=== PATIENT | female | born 1990 ===

== ENCOUNTER 2017-01-02 01:16 | Emergency (ER) | payer BC ==
[2017-01-02 01:33] VITALS: BP 137/80; PULSE 85; RESP 17; TEMP 98.7; O2SAT 98
[2017-01-02] MEDS ORDERED: Lidocaine 1% Inj (20ml) IJ ONE (01:58)
--- NOTE | 2017-01-02 02:04 | ED PDOC ---
HPI: Skin/Bite Injury Time Seen by Provider: 01/02/17 01:35 Chief Complaint (Nursing): Abnormal Skin Integrity Chief Complaint (Provider): right axilla pain History Per: Patient History/Exam Limitations: no limitations Onset/Duration Of Symptoms: Days (4) Current Symptoms Are (Timing): Still Present Quality Of Symptoms: Painful Additional History Per: Patient Additional Complaint(s): 26 y/o female presents with pain to right axilla x 4 days. Patient with history of MRSA, abscesses; states she has had them opened in her axilla multiple times. Denies fever, vomiting, chills, drainage from site. Past Medical History Reviewed: Historical Data, Nursing Documentation, Vital Signs Vital Signs: Last Vital Signs Temp 98.7 F 01/02/17 01:24 Pulse 85 01/02/17 01:24 Resp 17 01/02/17 01:24 BP 137/80 01/02/17 01:24 Pulse Ox 98 01/02/17 02:05 - Medical History PMH: No Chronic Diseases - Surgical History Surgical History: No Surg Hx - Family History Family History: States: No Known Family Hx - Home Medications Home Medications: Ambulatory Orders Medication Instructions Recorded Ibuprofen [Motrin Tab] 800 mg PO Q8 PRN #20 tab 01/02/17 Sulfamethoxazole/Trimethoprim 1 tab PO BID #14 tab 01/02/17 [Bactrim DS 800 mg-160 mg] - Allergies Allergies/Adverse Reactions: Allergies Allergy/AdvReac Type Severity Reaction Status Date / Time No Known Allergies Allergy Verified 01/02/17 01:33 Review of Systems ROS Statement: Except As Marked, All Systems Reviewed And Found Negative Skin: Positive for: Lesions (right axilla) Physical Exam - Reviewed Nursing Documentation Reviewed: Yes Vital Signs Reviewed: Yes - Physical Exam Appears: Positive for: Well, Non-toxic, No Acute Distress Head Exam: Positive for: ATRAUMATIC, NORMAL INSPECTION, NORMOCEPHALIC Skin: Positive for: Normal Color Eye Exam: Positive for: Normal appearance ENT: Positive for: Normal ENT Inspection Cardiovascular/Chest: Positive for: Regular Rate, Rhythm Respiratory: Positive for: Normal Breath Sounds Gastrointestinal/Abdominal: Positive for: Normal Exam Extremity: Positive for: Normal ROM, Other (erythema with cental area of fluctuance) Neurologic/Psych: Positive for: Alert, Oriented - ECG O2 Sat by Pulse Oximetry: 98 - Progress ED Course And Treament: Verbal consent given by patient for nitrous oxide use for I&D procedure Area cleaned with alcohol prep pad, anesthesized with 1% lidocaine. Incision made using size 11 blade with + prurlent and blood drainage. Area probed with forceps. Area packed, bandaged. Patient educated on findings, discharged with rx Bactrim DS, ibuprofen. Advised wound check/packing removal 48 hours. Return to ED for fever, increased pain/redness/swelling at site, or other concerning symptoms. Disposition - Clinical Impression Clinical Impression: Abscess, Cellulitis - Patient ED Disposition Is Patient to be Admitted: No Counseled Patient/Family Regarding: Diagnosis, Need For Followup, Rx Given - Disposition Disposition: Routine/Home Disposition Time: 02:49 Condition: STABLE Additional Instructions: Follow up in 48 hours for wound check. Take medication as directed. Return to ED for fever, increased redness at site, or other concerning symptoms. Prescriptions: Ibuprofen [Motrin Tab] 800 mg PO Q8 PRN #20 tab PRN Reason: Pain, Moderate (4-7) Sulfamethoxazole/Trimethoprim [Bactrim DS 800 mg-160 mg] 1 tab PO BID #14 tab Instructions: Abscess Incision and Drainage (ED), Cellulitis (ED)
[2017-01-02] MEDS ORDERED: Lidocaine 1% Inj (20ml) ONE (02:07)
[2017-01-02] MEDS ORDERED: Tmp-Smz 800 mg-160 mg DS Tab PO STA (02:49)
[2017-01-02] MEDS ORDERED: Tmp-Smz 800 mg-160 mg DS Tab ONE (02:59)
== END 2017-01-02 03:16 | disposition home or self-care (01) ==
LOC: H.ER 01:16
DX: L02.411 Cutaneous abscess of right axilla (principal)

== ENCOUNTER 2017-01-03 23:55 | Emergency (ER) | payer BC ==
[2017-01-04 00:11] VITALS: BP 149/81; PULSE 73; RESP 16; TEMP 98.4; O2SAT 100
--- NOTE | 2017-01-04 00:16 | ED PDOC ---
HPI: Wound Care - HPI Time Seen by Provider: 01/04/17 00:16 Chief Complaint (Nursing): Wound Check Chief Complaint (Provider): wound check History Per: Patient Additional Complaint(s): 26 year old presents to emergency Department for wound check of abscess. Patient was seen 2 days ago and had abscess to right axillary region drained. She was started on Bactrim. Patient states the area does feel better and redness and swelling have improved. She denies fever or chills. Past Medical History Reviewed: Historical Data, Nursing Documentation, Vital Signs Vital Signs: Last Vital Signs Temp 98.4 F 01/04/17 00:09 Pulse 73 01/04/17 00:09 Resp 16 01/04/17 00:09 BP 149/81 01/04/17 00:09 Pulse Ox 100 01/04/17 00:09 - Medical History PMH: No Chronic Diseases - Surgical History Surgical History: No Surg Hx - Family History Family History: States: No Known Family Hx - Living Arrangements Living Arrangements: With Family - Social History Current smoker - smoking cessation education provided: No Alcohol: None Drugs: Denies - Home Medications Home Medications: Ambulatory Orders Medication Instructions Recorded Ibuprofen [Motrin Tab] 800 mg PO Q8 PRN #20 tab 01/02/17 Sulfamethoxazole/Trimethoprim 1 tab PO BID #14 tab 01/02/17 [Bactrim DS 800 mg-160 mg] - Allergies Allergies/Adverse Reactions: Allergies Allergy/AdvReac Type Severity Reaction Status Date / Time No Known Allergies Allergy Verified 01/04/17 00:09 Review of Systems ROS Statement: Except As Marked, All Systems Reviewed And Found Negative Constitutional: Negative for: Fever Skin: Positive for: Other (wound check of abscess) Physical Exam - Reviewed Nursing Documentation Reviewed: Yes Vital Signs Reviewed: Yes - Physical Exam Appears: Positive for: Well, Non-toxic, No Acute Distress Skin: Negative for: Rash Eye Exam: Positive for: Normal appearance Extremity: Positive for: Other (Packed abscess noted to the right axillary region with minimal localized swelling and erythema, no active drainage) Neurologic/Psych: Positive for: Alert, Oriented - ECG O2 Sat by Pulse Oximetry: 100 Pulse Ox Interpretation: Normal Medical Decision Making Medical Decision Makin26 year old here for abscess wound check Packing was removed from abscess without incident. No discharge or bleeding noted. Abscess appears to be healing well. Gauze and tape applied to affected area. Patient given 1 g of Tylenol. She was advised to alternate Tylenol and Motrin for pain control. Patient was instructed to continue with Bactrim and follow up with primary doctor in 2 days. She is aware she can return to emergency department any time if acutely worse. Disposition - Clinical Impression Clinical Impression: Admission for wound check of abscess, Abscess - Patient ED Disposition Is Patient to be Admitted: No Counseled Patient/Family Regarding: Diagnosis, Need For Followup - Disposition Referrals: [facility] [Outside] Disposition: Routine/Home Disposition Time: : Condition: STABLE Additional Instructions: Apply warm compresses with epsom salts to affected area as often as possible. Continue with antibiotics. Take Tylenol every 4 hours and Motrin every 6 hours for pain control. Follow up with primary doctor on Friday or return any time if acutely worse. Instructions: Abscess (ED) Forms: AfterYes ([place]), [facility] ED School/Work Excuse
== END 2017-01-04 01:20 | disposition home or self-care (01) ==
LOC: H.ER 23:55
DX: Z51.89 Encounter for other specified aftercare (principal)